=== PATIENT | female | born 1955 | race African-American/Black ===

== ENCOUNTER → 2018-08-03 | Outpatient (CLI) | payer OTHER ==
[2018-08-03 18:42] LABS: BASOPHILS % (AUTO) 0.8 %; HGB - HEMOGLOBIN 12.3 g/dL (12.0-16.0); LYMPHOCYTES % (AUTO) 27.8 %; MEAN CORPUSCULAR HEMOGLOBIN 28.4 pg (27.0-31.0); MEAN CORPUSCULAR HGB CONC 32.4 g/dL (32.0-36.0); MEAN CORPUSCULAR VOLUME 87.4 fL (81.0-99.0); MEAN PLATELET VOLUME 9.9 fL (7.9-10.8); MONOCYTES % (AUTO) 9.1 %; NEUTROPHILS % (AUTO) 60.3 %; PLT - PLATELET COUNT 148 10^3/uL (130-450); RED BLOOD COUNT 4.35 10^6/uL (4.20-5.40); RED CELL DISTRIBUTION WIDTH 13.8 % (12.0-15.0); WHITE BLOOD COUNT 2.7 x10^3/uL (4.8-10.8)
[2018-08-03 18:44] LABS: ABNORMAL LYMPHS % (MANUAL) 0 %; BAND NEUTROPHILS % (MANUAL) 0 %
[2018-08-03 19:00] LABS: BASOPHILS % (MANUAL) 1 %; DIFFERENTIAL COMMENT MANUAL DIFFERENTIAL; EOSINOPHILS # (MANUAL) 0.1 10^3/uL (0-0.7); LYMPHOCYTES # (MANUAL) 0.8 10^3/uL (1.5-3.5); LYMPHOCYTES % (MANUAL) 28 %; MONOCYTES # (MANUAL) 0.2 10^3/uL (0.0-1.0); NEUTROPHILS # (MANUAL) 1.6 10^3/uL (1.5-6.6); NEUTROPHILS % (MANUAL) 61 %; PLATELET ESTIMATE, MANUAL NORMAL (130-450,000) (NORMAL); PLATELET MORPHOLOGY NORMAL APPEARANCE (NORMAL); RBC MORPHOLOGY (MULTIPLE) NORMAL APPEARANCE (NORMAL)
[2018-08-03 19:02] LABS: ALBUMIN/GLOBULIN RATIO 1.2 (1.0-2.2); ALKALINE PHOSPHATASE 78 IU/L (42-121); ALT ALANINE AMINOTRANSFERASE 13 IU/L (10-60); AST ASPARTATE AMINOTRANSFERASE 17 IU/L (10-42); BILIRUBIN,TOTAL 0.8 mg/dL (0.2-1.0); BUN - BLOOD UREA NITROGEN 21 mg/dL (6-20); CALCIUM 9.2 mg/dL (8.5-10.3); CARBON DIOXIDE - CO2 28 mmol/L (21-32); CHLORIDE 108 mmol/L (101-111); CHOL/HDL RATIO 2.2 (<4.4); CHOLESTEROL 184 mg/dL; CREATININE 0.8 mg/dL (0.4-1.0); GFR - MDRD 72 (>89); GLUCOSE 86 mg/dL (70-100); HDL CHOLESTEROL 85 mg/dL; LDL CHOLESTEROL,CALCULATED 88 mg/dL; SODIUM 141 mmol/L (135-145); TOTAL PROTEIN 7.4 g/dL (6.7-8.2); VLDL CHOLESTEROL 11 mg/dL
== END ==
LOC: LAB.R 14:32
PROVIDERS: ATTEND Nurse Practitioner Gerontology
DX: Z00.00 Encounter for general adult medical examination without abnormal findings (principal); Z82.49 Family history of ischemic heart disease and other diseases of the circulatory system; Z13.9 Encounter for screening, unspecified; D75.9 Disease of blood and blood-forming organs, unspecified
CPT/HCPCS: 36415; 80053; 80061; 83721; 85025

== ENCOUNTER 2018-10-23 12:06 | Outpatient (CLI) | payer OTHER ==
--- NOTE | 2018-10-23 14:21 | Mammography Report ---
Reason: BREAST TENDERNESS Procedure Date: 10/23/2018 Accession Number: [id number] / [id number] Procedure: JACLYN - Diagnostic Dig Bilat CPT Code: FULL RESULT: EXAM: Diagnostic Dig Bilat DATE: 10/23/2018 1:28 PM CLINICAL HISTORY: Breast tenderness that has since resolved. TECHNIQUE: Bilateral CC and MLO views were obtained. A left laterally exaggerated CC view was obtained. COMPARISON: None. The patient cannot recall the facility where prior studies were performed. FINDINGS: The breasts demonstrate extremely dense parenchyma bilaterally, limiting the sensitivity of mammography. The left breast demonstrates a single dilated duct with a caliber. 2 4 mm on MLO image 12 and CC image 17. Mammographically there is no associated mass or abnormal calcifications. The left breast finding requires additional focused left breast ultrasound for further characterization. No abnormal architectural distortion, suspicious mass or suspicious calcifications are identified in the right breast. IMPRESSION: Incomplete RECOMMENDATION: Focused left breast ultrasound. BIRADS CATEGORY 0 STANDARD QUALIFYING STATEMENTS: 1. This examination was not reviewed with the aid of Computer-Aided Detection (CAD). 2. A negative or benign imaging report should not delay biopsy if clinically suspicious findings are present. Consider surgical consultation if warrented. More than 5% of cancers are not identified by imaging. 3. Dense breasts may obscure an underlying neoplasm. 4. This examination was reviewed with the aid of 3D imaging (tomography).
== END 2018-10-23 12:07 | disposition home or self-care (01) ==
LOC: DI 12:06
PROVIDERS: ATTEND Nurse Practitioner Gerontology
DX: N64.4 Mastodynia (principal); R92.8 Other abnormal and inconclusive findings on diagnostic imaging of breast
CPT/HCPCS: 77066

== ENCOUNTER 2018-10-27 14:44 | Outpatient (CLI) | payer OTHER ==
--- NOTE | 2018-10-27 17:19 | Ultrasound Report ---
Reason: ABN MAMMO LT BREAST Procedure Date: 10/27/2018 Accession Number: [id number] / [id number] Procedure: US - Breast Unilateral Limited CPT Code: FULL RESULT: EXAM: Breast Unilateral Limited right and left breast. DATE: 10/27/2018 4:00 PM CLINICAL HISTORY: Additional imaging requested for abnormal finding at screening. TECHNIQUE: Real-time ultrasound was performed by the technologist. Due to uatsdin objection, patient declined to be scanned by male radiologist. COMPARISON: Baseline mammogram 10/23/2018 FINDINGS: Left breast: Patient was recalled for concern of the abnormally dilated duct left breast seen on 3-D imaging. Review of the mammogram shows benign duct ectasia with multiple dilated ducts filled with fat density material. On review, there is noted to be a 7 mm oval mass with circumscribed margins in the retroareolar plane, 3 cm from the nipple. Targeted ultrasound of the retroareolar breast shows ductal ectasia with fluid and debris-filled ducts, corresponding to the finding recalled from screening. At 12:00, 1 cm from the nipple, there is an oval, parallel orientation, circumscribed margin hypoechoic nonvascular mass measuring 7 mm as likely correlate to the mammographic finding. Right breast: While reviewing the mammogram, a circumscribed 7 mm oval mass in the 5:00 retroareolar breast 1.5 cm from the nipple is noted. Targeted ultrasound does not show an ultrasound correlate for this mammographic finding. No suspicious sonographic findings. IMPRESSION: Left breast: 1. 7 mm oval mass retroareolar plane as described with nonaggressive features. Probably benign. BI-RADS Category 3. Six-month follow-up ultrasound recommended or surveillance. 2. 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 Benign. BI-RADS Category 2. Right breast: 7 mm oval mass 5:00 anterior breast with benign mammographic features but no sonographic correlate. Probably benign. BI-RADS Category 3. Six-month follow-up surveillance mammogram is recommended. RECOMMENDATION: As above BI-RADS CATEGORY BI-RADS Category 3. Probably benign.
== END 2018-10-27 14:45 | disposition home or self-care (01) ==
LOC: DI 14:44
PROVIDERS: ATTEND Nurse Practitioner Gerontology
DX: N64.4 Mastodynia (principal); N63.0 Unspecified lump in unspecified breast; N60.42 Mammary duct ectasia of left breast
CPT/HCPCS: 76642

== ENCOUNTER 2018-11-27 08:00 | Outpatient (CLI) | payer OTHER | END 2018-11-27 23:59 | disposition home or self-care (01) | LOC: LAB.N 08:00 | PROVIDERS: ATTEND Nurse Practitioner | DX: L60.9 Nail disorder, unspecified (principal); L20.9 Atopic dermatitis, unspecified | CPT/HCPCS: 36415; 84443 ==

== ENCOUNTER 2019-02-26 08:00 | Outpatient (CLI) | payer OTHER ==
[2019-02-26 14:23] LABS: ALBUMIN/GLOBULIN RATIO 1.1 (1.0-2.2); BILIRUBIN,TOTAL 0.5 mg/dL (0.2-1.0); CALCIUM 8.9 mg/dL (8.5-10.3); CREATININE 0.7 mg/dL (0.4-1.0); TOTAL PROTEIN 7.5 g/dL (6.7-8.2)
== END 2019-02-26 23:59 | disposition home or self-care (01) ==
LOC: LAB.N 08:00
PROVIDERS: ATTEND Nurse Practitioner Gerontology
DX: R94.4 Abnormal results of kidney function studies (principal)
CPT/HCPCS: 36415; 80053